=== PATIENT | female | born 1965 | race Caucasian/White ===

== ENCOUNTER 2023-06-12 09:33 | Outpatient (CLI) | payer OTHER, SELFPAY | END 2023-06-12 09:34 | disposition home or self-care (01) | LOC: INJ CL 09:38 | PROVIDERS: PCP Family Medicine; Visit Provider Family Medicine | DX: M54.16 Radiculopathy, lumbar region (principal); M51.26 Other intervertebral disc displacement, lumbar region | CPT/HCPCS: 64483; J1100; Q9966 ==